=== PATIENT | female | born 1945 | race Caucasian/White ===

== ENCOUNTER → 2016-09-28 | Outpatient (CLI) | payer MEDICARE, OTHER ==
[~2016-09-28] MED LIST: CARDIZEM CD DP120 MG PO; DELTASONE DPS10 MG PO; DILANTIN DPS100 MG PO; LOPRESSOR DPS50 MG PO; MIRALAX PACKET17 GM PO; PEPCID DPS20 MG PO; SYNTHROID DPS0.05 MG PO; XARELTO20 MG PO
== END | disposition home or self-care (01) ==
LOC: RAD.S 08:44
DX: Z12.31 Encounter for screening mammogram for malignant neoplasm of breast (principal); R92.1 Mammographic calcification found on diagnostic imaging of breast